=== PATIENT | female | born 1970 | race Caucasian/White ===

== ENCOUNTER 2018-08-30 15:40 | Emergency (ER) | payer OTHER ==
[~2018-08-30] VITALS: Ht 160 cm; Wt 92.5 kg
[2018-08-30] MEDS ORDERED: LISINOPRIL10 MG PO (15:44)
[2018-08-30 16:09] LABS: URINE BILIRUBIN NEGATIVE (Negative); URINE BLOOD NEGATIVE (Negative); URINE CLARITY CLEAR; URINE COLOR YELLOW; URINE GLUCOSE-RANDOM* NEGATIVE (Negative); URINE KETONES NEGATIVE (Negative); URINE LEUKOCYTES-REFLEX NEGATIVE (Negative); URINE NITRITE-REFLEX NEGATIVE (Negative); URINE PROTEIN (DIPSTICK) NEGATIVE (Negative); URINE SPECIFIC GRAVITY <= 1.005 (1.005-1.035); URINE UROBILINOGEN 0.2 E.U./dl (0.2-1.0)
[2018-08-30 17:00] LABS: ABSOLUTE NEUTROPHILS 5.4 thou/uL (1.4-8.2); BASOPHILS 0.5 % (0.0-2.0); EOSINOPHILS 1.4 % (0.0-3.0); HEMATOCRIT 43.1 % (37.0-47.0); HEMOGLOBIN 14.6 gm/dL (12.0-15.0); LYMPHOCYTES 23.3 % (24.0-44.0); MCH 30.3 pg (26.0-34.0); MCV 89.2 fL (80.0-100.0); MONOCYTES 7.1 % (1.0-8.0); PLATELET COUNT 243 thou/uL (150-400); POLYS 67.7 % (36.0-66.0); RBC 4.83 mil/uL (4.20-5.00); RDW 13.1 % (10.5-14.5); WBC 7.9 thou/uL (4.0-11.0)
[2018-08-30 17:14] LABS: ANION GAP 9 mmol/L (7-16); BUN 9 mg/dL (7-18); CALCIUM 9.3 mg/dL (8.5-10.1); CHLORIDE 104 mmol/L (98-107); CO2 27 mmol/L (21-32); GLUCOSE 101 mg/dL (74-106); POTASSIUM 4.1 mmol/L (3.5-5.1); SODIUM 140 mmol/L (136-145)
[2018-08-30 17:25] LABS: ALBUMIN 4.2 g/dL (3.4-5.0); SGOT 41 U/L (15-37); SGPT 86 U/L (30-65); TOTAL BILIRUBIN 0.5 mg/dL (<0.1-1.0); TOTAL PROTEIN 7.5 g/dL (6.4-8.2); TROPONIN-I <0.06 ng/mL (<0.06)
[2018-08-30 17:35] VITALS: BP 115/73
--- NOTE | 2018-08-31 07:48 | EKG ---
[place] [address] [address] [place] [address] ELECTROCARDIOGRAM REPORT Name: RODRÍGUEZ CASTELLON Room #: DEP [facility] CAMPUSTra#: [id number] ������������������ Admission: 08/30/18 ������������������ Attend Phys: Discharge: 08/30/18 ������������������ Date of : 68 Report #: [id number] ����������������������������������������������������������������� [id number] THIS REPORT FOR: //name// [facility] ED Test Date: 2018-08-30 Test Time: 16:11:58 Pat Name: RODRÍGUEZ CASTELLON Department: Room: Gender: F Account Receivable Clerk: HAILEY : 1970 Requested By: Tess Gonzalez Order Number: [id number] MD: Braxton Ramos Measurements Intervals [place] Rate: 70 P: -2 NH: 153 QRS: -35 QRSD: 91 T: -7 QT: 389 QTc: 420 Interpretive Statements Sinus rhythm Leftward axis Poor R wave progression No previous ECG available for comparison Electronically Signed On 08-31-2018 7:48:17 CDT by Braxton Ramos [email or web address] ��������������������������������������������� <ELECTRONICALLY SIGNED> ���������������������������������������� By: Braxton Ramos MD, [facility] ��������������������������������������������� 08/31/18 0748 1611 1611 Braxton Ramos MD, FACC /EPI
== END 2018-08-30 17:35 | disposition home or self-care (01) ==
LOC: ER 15:40
PROVIDERS: Physician Assistant
DX: R20.2 Paresthesia of skin (principal); I10 Essential (primary) hypertension; M19.90 Unspecified osteoarthritis, unspecified site; Z88.2 Allergy status to sulfonamides; Z98.890 Other specified postprocedural states